=== PATIENT | female | born 1960 | race Caucasian/White ===

== ENCOUNTER → 2025-02-22 13:20 | Outpatient (REF) | payer OTHER, SELFPAY ==
[2025-02-22 16:06] LABS: ALT (SGPT) 20 U/L; AST (SGOT) 19 U/L; Albumin 4.4 g/dl; Alkaline Phosphatase 118 U/L; Blood Urea Nitrogen 25 mg/dl; Calcium 10.1 mg/dl; Carbon Dioxide 23 mmol/L; Chloride 108 mmol/L; Glucose 102 mg/dl; HDL Cholesterol 49 mg/dl; LDL Cholesterol, Calculated 85 mg/dl; Potassium 4.6 mmol/L; Sodium 144 mmol/L; Total Bilirubin 0.8 mg/dl; Total Cholesterol 162 mg/dl; Total Protein 7.6 g/dl; Triglyceride 144 mg/dl; Very Low Density Lipoprotein 28 mg/dl
[2025-02-23 11:05] LABS: Glycohemoglobin (HgbA1c) 5.3 %
== END ==
LOC: RCS 13:20
PROVIDERS: ATTENDING PHYSICIAN Nuclear Medicine Nuclear Cardiology; FAMILY PHYSICIAN Family Medicine
DX: R07.89 Other chest pain (principal); I10 Essential (primary) hypertension; E74.39 Other disorders of intestinal carbohydrate absorption; E78.5 Hyperlipidemia, unspecified
CPT/HCPCS: 36415; 80053; 80061; 83036; 93306; Q9950